=== PATIENT | female | born 1995 | race American Indian/Alaskan Native ===

== ENCOUNTER 2020-03-17 02:49 | Emergency (ER) | payer SELFPAY ==
[2020-03-17] MEDS ORDERED: LORazepam 1 MG TAB PO ONE (03:29)
[2020-03-17] MEDS ORDERED: IBUPROFEN 600 MG TAB PO ONE (03:29)
[2020-03-17] MEDS ORDERED: FAMOTIDINE 20 MG TAB PO ONE (03:29)
[2020-03-17 03:32] VITALS: BP 121/80
--- NOTE | 2020-03-17 04:16 | Emergency Department Report ---
ED General Adult HPI - General Chief complaint: Chest Pain Stated complaint: CHEST PAIN/ BRADLEY Source: patient Mode of arrival: Ambulatory Limitations: No Limitations - History of Present Illness Initial comments: Patient is a 25-year-old -[place] female with a history of significant anxiety and who does not take any medications presents to the ED with acute onset persistent chest tightness, anterior chest wall pain and shortness of breath after being involved in a verbal altercation with a colleague at work about 1 hour ago. 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 Patient denies dizziness, syncope, fever, chills, palpitations, headache, neck pain, nausea and vomiting, abdominal pain, change in vision, syncope, back pain, fall, traumatic injury, diaphoresis, sore throat, dysphagia or cough, numbness and tingling or weakness of upper extremities bilaterally. MD Complaint: dyspnea, substernal chest pain and tightness -: Sudden, hour(s) (1) Location: chest Radiation: non-radiation Severity scale (0 -10): 8 Quality: aching, sharp Consistency: constant Improves with: none Worsens with: none Associated Symptoms: denies other symptoms, chest pain, shortness of breath. denies: confusion, cough, headaches, malaise, nausea/vomiting, rash, seizure, syncope, weakness Treatments Prior to Arrival: none - Related Data Previous Rx's Medication Instructions Recorded Last Taken Type Ibuprofen [Motrin] 600 mg PO Q8H PRN #30 tablet 03/17/20 Unknown Rx hydrOXYzine PAMOATE [Vistaril] 50 mg PO Q8HR PRN #30 capsule 03/17/20 Unknown Rx Allergies Allergy/AdvReac Type Severity Reaction Status Date / Time No Known Allergies Allergy Unverified 03/17/20 03:32 ED Review of Systems ROS: Stated complaint: CHEST PAIN/ BRADLEY Other details as noted in HPI Constitutional: denies: chills, fever Eyes: denies: eye pain, eye discharge, vision change ENT: denies: ear pain, throat pain Respiratory: shortness of breath. denies: cough, wheezing Cardiovascular: chest pain (Substernal chest pain and tightness). denies: palpitations Endocrine: no symptoms reported Gastrointestinal: denies: abdominal pain, nausea, diarrhea Genitourinary: denies: urgency, dysuria, discharge Musculoskeletal: denies: back pain, joint swelling, arthralgia Skin: denies: rash, lesions Neurological: denies: headache, weakness, paresthesias Psychiatric: anxiety. denies: depression Hematological/Lymphatic: denies: easy bleeding, easy bruising ED Past Medical Hx - Past Medical History Previous Medical History?: Yes Hx Psychiatric Treatment: Yes (Anxiety) - Surgical History Past Surgical History?: No - Social History Smoking Status: Current Every Day Smoker Substance Use Type: None - Medications Home Medications: Home Medications Medication Instructions Recorded Confirmed Last Taken Type Ibuprofen [Motrin] 600 mg PO Q8H PRN #30 tablet 03/17/20 Unknown Rx hydrOXYzine PAMOATE [Vistaril] 50 mg PO Q8HR PRN #30 capsule 03/17/20 Unknown Rx ED Physical Exam - General Limitations: No Limitations General appearance: alert, in no apparent distress - Head Head exam: Present: atraumatic, normocephalic, normal inspection - Eye Eye exam: Present: normal appearance, PERRL, EOMI Pupils: Present: normal accommodation - ENT ENT exam: Present: normal exam, normal orophraynx, mucous membranes moist, TM's normal bilaterally, normal external ear exam - Neck Neck exam: Present: normal inspection, full ROM - Respiratory Respiratory exam: Present: normal lung sounds bilaterally, chest wall tenderness (Palpable reproducible anterior chest wall tenderness). Absent: respiratory distress, wheezes, rales, rhonchi, accessory muscle use, decreased breath sounds - Cardiovascular Cardiovascular Exam: Present: regular rate, normal rhythm, normal heart sounds. Absent: systolic murmur, diastolic murmur, rubs, gallop - GI/Abdominal GI/Abdominal exam: Present: soft, normal bowel sounds. Absent: tenderness, rebound, hyperactive bowel sounds, organomegaly, mass, bruit - Extremities Exam Extremities exam: Present: normal inspection, full ROM, normal capillary refill - Back Exam Back exam: Present: normal inspection, full ROM. Absent: tenderness, CVA tenderness (R), CVA tenderness (L), muscle spasm, paraspinal tenderness, vertebral tenderness - Neurological Exam Neurological exam: Present: alert, oriented X3, CN II-XII intact, normal gait, reflexes normal - Psychiatric Psychiatric exam: Present: normal affect, normal mood, anxious - Skin Skin exam: Present: warm, dry, intact, normal color. Absent: rash ED Course Vital Signs 03/17/20 03:13 Temperature 98.2 F Pulse Rate 78 Respiratory 18 Rate Blood Pressure 121/80 O2 Sat by Pulse 100 Oximetry ED Medical Decision Making - EKG Data EKG shows normal: sinus rhythm Rate: normal - EKG Data Interpretation: normal EKG 03/17/20 04:23 The EKG shows normal sinus rhythm with a ventricular rate of [address] or T wave abnormalities. - Medical Decision Making This is a 25-year-old -[place] female with a history of significant anxiety and who does not take any medications presents to the ED with acute onset persistent chest tightness, anterior chest wall pain and shortness of breath after being involved in a verbal altercation with a colleague at work about 1 hour ago. 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 In the ED, patient is alert and oriented x3 and is not in distress but significantly anxious in triage with normal vital signs. EKG shows normal sinus rhythm with ventricular rate of [address] or T wave abnormalities. Patient was treated for anxiety in the ED and observed. Patient's heart score is 1 and patient is PERC negative per Wells criteria. Patient symptoms due to anxiety which started after an intense verbal argument and altercation at work with a colleague resulting in her crying and having the symptoms. On reevaluation, patient's symptoms resolved in the ED and patient will discharge home on medications and advised to follow-up with her primary care physician in 3 to 5 days for reevaluation or return to the ED immediately if symptoms get worse. - Differential Diagnosis Anxiety; pneumonia; muscle strain; costochondritis; ACS; PE Critical care attestation.: If time is entered above; I have spent that time in minutes in the direct care of this critically ill patient, excluding procedure time. ED Disposition Clinical Impression: Anxiety as acute reaction to exceptional stress, Acute costochondritis, Anterior chest wall pain Disposition: -01 TO HOME OR SELFCARE Is pt being admited?: No Does the pt Need Aspirin: No Condition: Stable Instructions: Chest Pain (ED), Costochondritis, [id number], Nonspecific Chest Pain, Adult, Chest Wall Pain, [id number], Generalized Anxiety Disorder, Adult Additional Instructions: Your symptoms are likely due to her acute anxiety causing significant chest wall tightness and pain since you have no risk factors for cardiac disease. Therefore take medication as needed for anxiety and pain, follow-up with your primary care physician in 3 to 5 days for reevaluation or return to the ED immediately if your symptoms get worse. Prescriptions: Ibuprofen [Motrin] 600 mg PO Q8H PRN #30 tablet PRN Reason: Pain hydrOXYzine PAMOATE [Vistaril] 50 mg PO Q8HR PRN #30 capsule PRN Reason: Anxiety Referrals: [facility] [Outside] - 3-5 Days [facility] [Provider Group] - 3-5 Days Forms: Work/School Release Form(ED) Time of Disposition: 04:16 Print Language: [place] CITIZ[place]
== END 2020-03-17 04:44 | disposition home or self-care (01) ==
LOC: ED 02:49
DX: M94.0 Chondrocostal junction syndrome [Tietze] (principal); F41.1 Generalized anxiety disorder; F43.0 Acute stress reaction; R07.89 Other chest pain; F17.200 Nicotine dependence, unspecified, uncomplicated; Z79.899 Other long term (current) drug therapy
CPT/HCPCS: 93005